=== PATIENT | male | born 1935 | race Caucasian/White ===

== ENCOUNTER 2016-09-09 04:01 | Inpatient (IN) | payer MEDICARE, BC ==
[2016-09-09 04:37] LABS: BASOPHILS % (AUTO) 1 % (0-3); EOSINOPHILS % (AUTO) 8 % (0-9); HEMATOCRIT 40 % (39-53); MEAN CORPUSCULAR HGB CONC 35.6 gm/dl (32.0-36.0); MEAN CORPUSCULAR VOLUME 88 fL (80-100); MONOCYTES % (AUTO) 9.1 % (0-12); NEUTROPHILS % (AUTO) 62.4 % (37-80)
[2016-09-09 04:45] LABS: ALBUMIN 3.7 gm/dl (3.4-5.0); ALT 30 IU/L (14-63); CALCIUM 9.5 mg/dl (8.5-10.1); GLOM FILT RATE 49 mL/min (>60); SODIUM 138 mMol/L (136-145)
[2016-09-09] MEDS ORDERED: ASPIRIN 325 MG TAB PO ONE (05:24)
[2016-09-09] MEDS: NOVOLOG FLEXPEN SC SCH ×2 (08:28→17:40)
[2016-09-09] MEDS ORDERED: VIT C PO SCH (09:00)
[2016-09-09] MEDS ORDERED: OMEGA PO SCH (09:00)
[2016-09-09] MEDS ORDERED: LUTEIN PO SCH (09:00)
[2016-09-09] MEDS ORDERED: VIT E PO SCH (09:00)
[2016-09-09] MEDS ORDERED: ASCORBIC ACID/COPPER/LUTEIN/ 1 CAP CAP PO SCH (09:00)
[2016-09-09] MEDS: ENOXAPARIN 40 MG SOL SC SCH (09:47)
[2016-09-09] MEDS: LISINOPRIL 20 MG TAB PO SCH (09:53)
[2016-09-09] MEDS: ASPIRIN EC 81 MG PO SCH (09:54)
[2016-09-09] MEDS: ATORVASTATIN 10 MG TAB PO SCH (09:54)
[2016-09-09] MEDS: METFORMIN HYDROCHLORIDE 500 MG TAB PO SCH ×2 (09:54→20:59)
[2016-09-09] MEDS: SODIUM CHLORIDE 0.9% FLUSH 10 ML SOL IV SCH ×5 (09:55→18:46)
[2016-09-09] MEDS: TAMSULOSIN HYDROCHLORIDE 0.4 MG CAP PO SCH (09:55)
[2016-09-09 17:39] VITALS: RESP 20
[2016-09-10] MEDS: SODIUM CHLORIDE 0.9% FLUSH 10 ML SOL IV SCH ×3 (01:07→09:02)
[2016-09-10] MEDS: NOVOLOG FLEXPEN SC SCH (06:58)
[2016-09-10 07:21] LABS: POTASSIUM 4.2 mMol/L (3.5-5.1)
[2016-09-10 07:25] LABS: BASOPHILS % (AUTO) 1 % (0-3); EOSINOPHILS % (AUTO) 9 % (0-9); HEMATOCRIT 35 % (39-53); MEAN CORPUSCULAR HGB CONC 36.3 gm/dl (32.0-36.0); MEAN CORPUSCULAR VOLUME 89 fL (80-100); MONOCYTES % (AUTO) 7.6 % (0-12); NEUTROPHILS % (AUTO) 63.3 % (37-80)
[2016-09-10 08:54] VITALS: BP 117/67; PULSE 76; TEMP 97.5; O2SAT 93
[2016-09-10] MEDS: LISINOPRIL 20 MG TAB PO SCH (08:54)
[2016-09-10] MEDS: ENOXAPARIN 40 MG SOL SC SCH (08:54)
[2016-09-10] MEDS: TAMSULOSIN HYDROCHLORIDE 0.4 MG CAP PO SCH (08:54)
[2016-09-10] MEDS: METFORMIN HYDROCHLORIDE 500 MG TAB PO SCH (08:54)
[2016-09-10] MEDS: ATORVASTATIN 10 MG TAB PO SCH (08:54)
[2016-09-10] MEDS: ASPIRIN EC 81 MG PO SCH (08:59)
== END 2016-09-10 10:50 | disposition home or self-care (01) | DRG 65 ==
LOC: ED 04:01 → ACUTE CARE 05:12
PROVIDERS: ADMIT Emergency Medicine; ATTEND Family Medicine
PROC: F01ZDFZ Gait and/or Balance Assessment using Assistive, Adaptive, Supportive or Protective Equipment (ICD-10-PCS; principal; 2016-09-09)
PROC: F01ZBZZ Bed Mobility Assessment (ICD-10-PCS; 2016-09-09)
PROC: F01ZCZZ Transfer Assessment (ICD-10-PCS; 2016-09-09)
DX: I63.9 Cerebral infarction, unspecified (principal); G81.91 Hemiplegia, unspecified affecting right dominant side; E11.9 Type 2 diabetes mellitus without complications; R29.810 Facial weakness; I10 Essential (primary) hypertension; R29.702 NIHSS score 2; Z79.84 Long term (current) use of oral hypoglycemic drugs
CPT/HCPCS: 36415; 70450; 70544; 70549; 70551; 70553; 71010; 80048; 80053; 82962; 84484; 85025; 85610; 85730; 93005; 93012; 94762; 99222; 99291; J1650; J1815

== ENCOUNTER 2017-05-23 08:03 | Day surgery (SDC) | payer MEDICARE, BC ==
[~2017-05-23 08:03] MED LIST: LIDOCAINE HCL 1% MPF SOL ONE; PROPOFOL 500 MG/50 ML EMU IV ONE
[2017-05-23 10:02] VITALS: TEMP 97.7
[2017-05-23 10:32] VITALS: BP 139/86; PULSE 52; RESP 20; O2SAT 95
== END 2017-05-23 10:51 | disposition home or self-care (01) | DRG 951 ==
LOC: SURG 08:03
PROVIDERS: ATTEND Internal Medicine Gastroenterology
DX: Z12.11 Encounter for screening for malignant neoplasm of colon (principal); E11.9 Type 2 diabetes mellitus without complications; D12.2 Benign neoplasm of ascending colon; Z86.010 Personal history of colon polyps; D12.3 Benign neoplasm of transverse colon; D12.4 Benign neoplasm of descending colon; K57.30 Diverticulosis of large intestine without perforation or abscess without bleeding; K64.8 Other hemorrhoids
CPT/HCPCS: 82962; J2001; J2704